=== PATIENT | female | born 1965 | race Caucasian/White ===

== ENCOUNTER → 2018-06-19 | Outpatient (CLI) | payer OTHER | END | disposition home or self-care (01) | LOC: CFH 06:47 | PROVIDERS: ATTEND Physician Assistant | DX: I48.91 Unspecified atrial fibrillation (principal); I10 Essential (primary) hypertension; R00.2 Palpitations | CPT/HCPCS: 93306 ==

== ENCOUNTER 2018-12-19 08:42 | Emergency (ER) | payer OTHER ==
[~2018-12-19] VITALS: Ht 170.2 cm; Wt 66.5 kg
[2018-12-19] MEDS ORDERED: ACEB200C13 PO (09:18)
[2018-12-19] MEDS ORDERED: ASPI-496 PO (09:18)
[2018-12-19] MEDS ORDERED: OMEP20TA62 PO (09:18)
[2018-12-19] MEDS ORDERED: SODIUM CHLORIDE FLUSH 10ML SYR IVF ONE (09:30)
[2018-12-19 09:47] LABS: BASOPHILS # (AUTO) 0.03 x10^3/uL (0-0.1); BASOPHILS % (AUTO) 1 % (0-1); EOSINOPHILS # (AUTO) 0.16 x10^3/uL (0-0.4); EOSINOPHILS % (AUTO) 3 % (1-7); LYMPHOCYTES % (AUTO) 34 % (22-44); MD NO; MEAN CORPUSCULAR HEMOGLOBIN 32.9 pg (27.0-34.8); MEAN CORPUSCULAR HGB CONC 33.8 g/dL (32.4-35.8); MEAN CORPUSCULAR VOLUME 97.1 fL (80-100); MEAN PLATELET VOLUME 7.2 fL (7.4-10.4); MONOCYTES # (AUTO) 0.33 x10^3/uL (0.2-0.8); MONOCYTES % (AUTO) 6 % (2-9); NEUTROPHILS # (AUTO) 3.03 x10^3/uL (1.8-6.8); NEUTROPHILS % (AUTO) 57 % (42-75); PLATELET COUNT 325 x10^3/uL (130-400); RED BLOOD COUNT 4.11 x10^6/uL (3.82-5.3); RED CELL DISTRIBUTION WIDTH 12.7 % (9.6-15.2)
--- NOTE | 2018-12-19 09:47 | NUR ---
pt to BR indep, back to [facility] awake & comfortable, responds approp to staff, NAD, comfort measures provided, at BS, call light within reach.
[2018-12-19 09:52] LABS: INTERNATIONAL NORMALIZED RATIO 0.98 (0.93-1.1); PROTHROMBIN TIME 10.4 Seconds (9.6-11.5)
[2018-12-19 09:53] LABS: ALBUMIN 4.7 g/dL (3.4-5.0); ANION GAP 7 mmol/L (5-15); CALCIUM 9.7 mg/dL (8.5-10.1); CHLORIDE 107 mmol/L (98-107)
[2018-12-19 09:54] LABS: CREATININE 0.86 mg/dL (0.55-1.02)
[2018-12-19] MEDS ORDERED: OMNIPAQUE 350 MG/ML, 100ML BOTTLE ONE (10:35)
--- NOTE | 2018-12-19 11:08 | NUR ---
pt remains upright on gurney, responds approp to staff, NAD, comfort measures provided, call light within reach.
--- NOTE | 2018-12-19 11:09 | NUR ---
pt to CT Addendum: 12/19/18 at 1114 by GAIL pt to MRI
[2018-12-19 12:02] VITALS: BP 110/71
--- NOTE | 2018-12-19 12:08 | NUR ---
Patient given discharge instructions and Rx, they have confirmed that they understand the instructions. Patient ambulatory with steady gait.
== END 2018-12-19 12:20 | disposition home or self-care (01) ==
LOC: ED 09:33
DX: R20.2 Paresthesia of skin (principal); R53.1 Weakness; I48.91 Unspecified atrial fibrillation; I10 Essential (primary) hypertension
CPT/HCPCS: 36415; 70450; 70496; 70498; 70551; 80048; 82040; 85025; 85610; 85730; 93005; 99284; Q9967

== ENCOUNTER 2019-05-01 12:04 | Emergency (ER) | payer OTHER ==
[~2019-05-01] VITALS: Ht 170.2 cm; Wt 66.3 kg
[~2019-05-01 12:04] MED LIST: ACEB200C13 PO; ASPI-496 PO; OMEP20TA62 PO
[2019-05-01 12:09] VITALS: BP 148/79
== END 2019-05-01 13:16 | disposition home or self-care (01) ==
LOC: ED 13:10
DX: S20.211A Contusion of right front wall of thorax, initial encounter (principal); I48.91 Unspecified atrial fibrillation; W18.30XA Fall on same level, unspecified, initial encounter; Y93.89 Activity, other specified; Y92.009 Unspecified place in unspecified non-institutional (private) residence as the place of occurrence of the external cause; Y99.8 Other external cause status
CPT/HCPCS: 99283

== ENCOUNTER 2019-06-26 05:30 | Day surgery (SDC) | payer OTHER ==
[~2019-06-26] VITALS: Ht 170.2 cm; Wt 65.0 kg
[2019-06-26 16:05] VITALS: BP 97/64
== END 2019-06-26 17:00 | disposition home or self-care (01) ==
LOC: ED 07:39 → 4NOR 07:40 → UNDOADMIN 07:40 → UNDOADMOB 07:40 → EDIP 07:40 → INTOOBSV 07:40 → 4NOR 07:40 → ED 07:54 → 4NOR 09:07 → ED 09:07 → 4NOR 09:42 → EDIP 09:42 → EDSTATUS 09:49 → EDIP 12:15 → UNDOADMOB 12:15 → 4NOR 12:15 → SDC 12:15 → UNDODISOB 17:00 → SDC 17:00
PROVIDERS: ATTEND Surgery
DX: K35.80 Unspecified acute appendicitis (principal); I48.91 Unspecified atrial fibrillation; Z79.899 Other long term (current) drug therapy; Z88.4 Allergy status to anesthetic agent; Z88.5 Allergy status to narcotic agent; Z88.0 Allergy status to penicillin; Z88.8 Allergy status to other drugs, medicaments and biological substances
CPT/HCPCS: 36415; 44970; 74177; 80053; 81001; 83690; 85025; 87086; 88304; J0171; J0330; J0744; J1100; J2250; J2270; J2405; J2704; J2710; J3010; J3480; J3490; J7030; Q9967; G0378